=== PATIENT | male | born 1985 ===

== ENCOUNTER 2022-01-07 12:46 | Emergency (ER) | payer BC, OTHER ==
[~2022-01-07] VITALS: Ht 180.3 cm; Wt 70.3 kg
[2022-01-07 14:39] VITALS: BP 133/83
[2022-01-07] MEDS ORDERED: KETOROLAC TROMETH 60MG/2ML VIAL IM ONE (15:15)
[2022-01-07] MEDS ORDERED: IBUP800T27 PO (15:19)
== END 2022-01-07 15:30 | disposition home or self-care (01) ==
LOC: ER 12:46
DX: S50.11XA Contusion of right forearm, initial encounter (principal); F12.10 Cannabis abuse, uncomplicated; X50.0XXA Overexertion from strenuous movement or load, initial encounter; Y93.89 Activity, other specified; Y92.89 Other specified places as the place of occurrence of the external cause; Y99.8 Other external cause status
CPT/HCPCS: 29125; 73110; 96372; 99283; J1885